=== PATIENT | male | born 1985 | race Caucasian/White ===

== ENCOUNTER 2018-06-09 09:36 | Emergency (ER) | payer MEDICAID ==
[~2018-06-09] VITALS: Ht 170.2 cm; Wt 68.2 kg
[2018-06-09 11:16] VITALS: BP 125/79
== END 2018-06-09 11:37 | disposition home or self-care (01) ==
LOC: EMS 09:37 → EDBD 09:37 → EMS 11:37
DX: S71.132A Puncture wound without foreign body, left thigh, initial encounter (principal); W54.0XXA Bitten by dog, initial encounter; Y93.89 Activity, other specified; Y92.89 Other specified places as the place of occurrence of the external cause; Y99.8 Other external cause status
CPT/HCPCS: 73552

== ENCOUNTER 2018-08-10 15:25 | Emergency (ER) | payer MEDICAID ==
[~2018-08-10] VITALS: Ht 170.2 cm; Wt 65.9 kg
[~2018-08-10 15:25] MED LIST: DSS100 PO
[2018-08-10 16:05] VITALS: BP 122/77
== END 2018-08-10 18:30 | disposition home or self-care (01) ==
LOC: EMS 15:26
DX: J02.8 Acute pharyngitis due to other specified organisms (principal); B97.89 Other viral agents as the cause of diseases classified elsewhere

== ENCOUNTER 2018-09-08 17:46 | Emergency (ER) | payer MEDICAID ==
[~2018-09-08] VITALS: Ht 170.2 cm; Wt 75.0 kg
[2018-09-08] MEDS ORDERED: BACITRACIN 0.9 GM PACKET OINTMENT TP ONE (18:30)
[2018-09-08] MEDS ORDERED: LIDOCAINE 1% 10 ML VIAL INJ ONE (18:30)
[2018-09-08] MEDS ORDERED: ACETAMINOPHEN 500 MG TABLET PO ONE (18:30)
[2018-09-08 19:50] VITALS: BP 129/75
[2018-09-08] MEDS ORDERED: PERTUSS(ACELL),DIPH,TET VAC/PF 0.5 ML VIAL IM ONE (20:00)
== END 2018-09-08 20:34 | disposition home or self-care (01) ==
LOC: EMS 17:47
DX: S01.81XA Laceration without foreign body of other part of head, initial encounter (principal); W18.09XA Striking against other object with subsequent fall, initial encounter; Y93.I9 Activity, other involving external motion; Y92.89 Other specified places as the place of occurrence of the external cause; Y99.8 Other external cause status
CPT/HCPCS: 12013; 70450; 72125; 90471; 90715; 99284; J3490

== ENCOUNTER 2023-02-13 19:49 | Inpatient (IN) | payer MEDICAID ==
[~2023-02-13] VITALS: Ht 167.6 cm; Wt 68.0 kg
[~2023-02-13 19:49] MED LIST changes: +ARIP5TAB8 PO; -DSS100 PO
[2023-02-13 21:54] LABS: BASOPHILS % (AUTO) 0.6 % (0.0-2.0); EOSINOPHILS % (AUTO) 3.5 % (1.0-6.0); HEMATOCRIT 47.1 % (41-53); HEMOGLOBIN 15.7 g/dL (13.5-17.5); LYMPHOCYTES # (AUTO) 1.4 K/uL (1.0-4.8); LYMPHOCYTES % (AUTO) 18.9 % (22.0-44.0); MEAN CORPUSCULAR HEMOGLOBIN 30.6 pg (26.0-34.0); MEAN CORPUSCULAR HGB CONC 33.3 G/dL (31.0-37.0); MEAN CORPUSCULAR VOLUME 92 fL (80-100); MONOCYTES # (AUTO) 0.5 K/uL (0.1-1.0); MONOCYTES % (AUTO) 6.4 % (2.0-9.0); NEUTROPHILS # (AUTO) 5.2 K/uL (1.8-7.7); NEUTROPHILS % (AUTO) 70.6 % (40.0-70.0); PLATELET COUNT (AUTO) 298 K/uL (150-450); RED BLOOD CELL COUNT(AUTO) 5.12 MIL/uL (4.50-5.90); WHITE BLOOD COUNT (AUTO) 7.3 K/uL (4.5-11.0)
[2023-02-13 22:04] LABS: ANION GAP 10 mmol/L (8-16); CALCIUM, TOTAL 9.3 mg/dL (8.8-10.5); CARBON DIOXIDE 27 mmol/L (22-29); CHLORIDE 103 mmol/L (98-107); CREATININE 0.84 mg/dL (0.60-1.30); GLOMERULAR FILTR. RATE CALC > 60 mL/min (>60); GLUCOSE,RANDOM 110 mg/dL (70-110); POTASSIUM 4.3 mmol/L (3.5-5.1); SODIUM SERUM 140 mmol/L (136-145); UREA NITROGEN, BLOOD 7 mg/dL (7-18)
[2023-02-13 22:05] LABS: ALCOHOL, BLOOD (SERUM) 232 mg/dL (0-10)
[2023-02-13 22:09] LABS: ALANINE AMINOTRANSFERASE 64 U/L (12-78); ALBUMIN 4.5 g/dL (3.4-5.0); ALKALINE PHOSPHATASE 90 U/L (46-116); ASPARTATE AMINOTRANSFERASE 64 U/L (15-37); BILIRUBIN,TOTAL 0.4 mg/dL (0.1-1.0)
[2023-02-13] MEDS ORDERED: ZOLPIDEM TARTRATE 10 MG TABLET PO PRN (22:45)
[2023-02-13] MEDS ORDERED: HALOPERIDOL 5 MG TABLET PO PRN (22:45)
[2023-02-13] MEDS ORDERED: LORazepam 2 MG TABLET PO PRN (22:45)
[2023-02-13] MEDS ORDERED: LORazepam 2 MG TABLET PO ONE (23:00)
[2023-02-13] MEDS ORDERED: CEPHALEXIN MONOHYDRATE 500 MG CAPSULE PO ONE (23:15)
[2023-02-14] VITALS (9 sets, daily range): BP systolic 107–130; BP diastolic 58–88; PULSE 72–89; RESP 18; TEMP 97.8–98.1; O2SAT 96–100
[2023-02-14 00:27] LABS: COVID AG,FIA SOURCE NASAL SWAB
[2023-02-14 00:51] LABS: SARS-COV2 (COVID) ANTIGEN,FIA Negative (Negative)
[2023-02-14] MEDS ORDERED: INFLUENZA VIRUS VACCINE QVS 2023-24 (6MO+)/PF 60 MCG/0.5 ML SYRINGE IM. ONE (03:30)
[2023-02-14] MEDS ORDERED: MAGNESIUM HYDROXIDE SUSPENSION 30 ML UDCUP PO PRN (06:45)
[2023-02-14] MEDS ORDERED: ONDANSETRON HCL 4 MG TABLET PO PRN (06:45)
[2023-02-14] MEDS ORDERED: DOCUSATE SODIUM 100 MG CAPSULE PO PRN (06:45)
[2023-02-14] MEDS ORDERED: ACETAMINOPHEN 325 MG TABLET PO PRN (06:45)
[2023-02-14] MEDS ORDERED: BENZOCAINE/MENTHOL LOZENGE PO PRN (06:45)
[2023-02-14] MEDS ORDERED: BACITRACIN 28 GM OINTMENT TP PRN (06:45)
[2023-02-14] MEDS ORDERED: PETROLATUM,WHITE 28 GM JELLY TP PRN (06:45)
[2023-02-14] MEDS ORDERED: LOPERAMIDE HCL 2 MG CAPSULE PO PRN (06:45)
[2023-02-14] MEDS ORDERED: CloNIDine HCL 0.1 MG TABLET PO PRN (06:45)
[2023-02-14] MEDS ORDERED: MAG HYDROX/AL HYDROX/SIMETH ES 30 ML SUSPENSION UDCUP PO PRN (06:45)
[2023-02-14] MEDS ORDERED: IBUPROFEN 600 MG TABLET PO PRN (06:45)
[2023-02-14] MEDS ORDERED: OMEPRAZOLE 20 MG CAPSULE PO PRN (06:45)
[2023-02-14] MEDS ORDERED: ALBUTEROL SULFATE HFA 90 MCG/PUFF 8 GM INHALER IH PRN (06:45)
[2023-02-14] MEDS: RisperiDONE 1 MG TABLET PO SCH (16:47)
[2023-02-15 00:02] VITALS: RESP 18
[2023-02-15 00:04] VITALS: RESP 18
[2023-02-15 03:15] VITALS: BP 112/70; PULSE 82; RESP 18; TEMP 98
[2023-02-15] MEDS: RisperiDONE 1 MG TABLET PO SCH ×2 (08:34→17:00)
[2023-02-15 10:34] VITALS: BP 100/6; PULSE 74; RESP 17; TEMP 97.5; O2SAT 98
[2023-02-15 20:25] VITALS: BP 103/69; PULSE 100; RESP 18; TEMP 97.6; O2SAT 98
[2023-02-16 08:35] VITALS: BP 114/62; PULSE 74; RESP 18; TEMP 97.9; O2SAT 95
[2023-02-16] MEDS: RisperiDONE 1 MG TABLET PO SCH ×2 (09:28→16:07)
[2023-02-16 20:20] VITALS: BP 133/80; PULSE 81; RESP 18; TEMP 97.8
[2023-02-17 08:21] VITALS: BP 102/66; PULSE 66; RESP 17; TEMP 97.6; O2SAT 99
[2023-02-17] MEDS: RisperiDONE 1 MG TABLET PO SCH (08:52)
[2023-02-17] MEDS ORDERED: RISP1TAB98 PO (09:59)
== END 2023-02-17 10:30 | disposition home or self-care (01) | DRG 750 ==
LOC: EMS 19:49 → B2S 02-14 00:37
PROVIDERS: ADMIT Psychiatry & Neurology Psychiatry; ATTEND Psychiatry & Neurology Psychiatry
DX: F25.9 Schizoaffective disorder, unspecified (principal); F29 Unspecified psychosis not due to a substance or known physiological condition; F15.10 Other stimulant abuse, uncomplicated; F43.10 Post-traumatic stress disorder, unspecified; Z20.822 Contact with and (suspected) exposure to COVID-19; G47.00 Insomnia, unspecified; K59.00 Constipation, unspecified; F41.9 Anxiety disorder, unspecified; F10.10 Alcohol abuse, uncomplicated; S01.512A Laceration without foreign body of oral cavity, initial encounter; X58.XXXA Exposure to other specified factors, initial encounter; Y93.89 Activity, other specified; Y92.89 Other specified places as the place of occurrence of the external cause; Y99.8 Other external cause status
CPT/HCPCS: 80053; 85025; 99285; G0480

== ENCOUNTER → 2023-06-11 | Emergency (ER) | payer MEDICAID ==
[~2023-06-11] VITALS: Ht 165.1 cm; Wt 68.0 kg
[~2023-06-11] MED LIST changes: -ARIP5TAB8 PO; +RISP-31 PO
[2023-06-11 19:48] VITALS: BP 110/70; PULSE 80; RESP 16; TEMP 98.8
== END | disposition still patient (30) ==
LOC: EMS 19:29
DX: M79.672 Pain in left foot (principal); M79.671 Pain in right foot; R07.89 Other chest pain; Z53.21 Procedure and treatment not carried out due to patient leaving prior to being seen by health care provider
CPT/HCPCS: 93005; 99281; Z7502

== ENCOUNTER 2023-07-14 17:26 | Emergency (ER) | payer MEDICAID ==
[~2023-07-14] VITALS: Ht 167.6 cm; Wt 68.2 kg
[2023-07-14 18:17] LABS: BASOPHILS % (AUTO) 0.3 % (0.0-2.0); EOSINOPHILS % (AUTO) 1.1 % (1.0-6.0); HEMATOCRIT 44.8 % (41-53); HEMOGLOBIN 15.1 g/dL (13.5-17.5); LYMPHOCYTES % (AUTO) 9.5 % (22.0-44.0); MEAN CORPUSCULAR HEMOGLOBIN 31.1 pg (26.0-34.0); MEAN CORPUSCULAR HGB CONC 33.8 G/dL (31.0-37.0); MEAN CORPUSCULAR VOLUME 92 fL (80-100); MONOCYTES # (AUTO) 0.7 K/uL (0.1-1.0); MONOCYTES % (AUTO) 6.5 % (2.0-9.0); NEUTROPHILS # (AUTO) 8.9 K/uL (1.8-7.7); NEUTROPHILS % (AUTO) 82.6 % (40.0-70.0); PLATELET COUNT (AUTO) 327 K/uL (150-450); RED BLOOD CELL COUNT(AUTO) 4.87 MIL/uL (4.50-5.90); RED CELL DISTRIBUTION WIDTH 15.4 % (11.5-14.5); WHITE BLOOD COUNT (AUTO) 10.8 K/uL (4.5-11.0)
[2023-07-14] MEDS: SODIUM CHLORIDE 0.9% 1,000 ML IV ONE (18:36)
[2023-07-14] MEDS: ONDANSETRON HCL 4 MG/2 ML VIAL IVP ONE (18:36)
[2023-07-14 18:41] LABS: ANION GAP 13 mmol/L (8-16); CALCIUM, TOTAL 9.2 mg/dL (8.8-10.5); CARBON DIOXIDE 25 mmol/L (22-29); CHLORIDE 100 mmol/L (98-107); CREATININE 1.08 mg/dL (0.60-1.30); GLOMERULAR FILTR. RATE CALC > 60 mL/min (>60); GLUCOSE,RANDOM 106 mg/dL (70-110); POTASSIUM 4.2 mmol/L (3.5-5.1); SODIUM SERUM 138 mmol/L (136-145); UREA NITROGEN, BLOOD 16 mg/dL (7-18)
[2023-07-14 18:49] LABS: ALANINE AMINOTRANSFERASE 37 U/L (12-78); ALBUMIN 4.3 g/dL (3.4-5.0); ALKALINE PHOSPHATASE 91 U/L (46-116); ASPARTATE AMINOTRANSFERASE 39 U/L (15-37); BILIRUBIN,TOTAL 0.3 mg/dL (0.1-1.0); TOTAL PROTEIN, SERUM 7.7 g/dL (6.4-8.2)
[2023-07-14 18:59] LABS: ALCOHOL, BLOOD (SERUM) 218 mg/dL (0-10)
[2023-07-14 22:38] VITALS: BP 111/58; PULSE 86; RESP 19; TEMP 97.5
== END 2023-07-14 23:58 | disposition home or self-care (01) ==
LOC: EMS 17:26
DX: F10.129 Alcohol abuse with intoxication, unspecified (principal); R11.2 Nausea with vomiting, unspecified; F12.90 Cannabis use, unspecified, uncomplicated; F15.90 Other stimulant use, unspecified, uncomplicated; Y90.9 Presence of alcohol in blood, level not specified
CPT/HCPCS: 99283; 96374; 96361; 80053; 85025; 36415; G0480; J2405; J7030